=== PATIENT | female | born 1935 | race Caucasian/White ===

== ENCOUNTER 2022-03-23 15:30 | Inpatient (IN) | payer MEDICARE, OTHER ==
[~2022-03-23] VITALS: Ht 152.4 cm; Wt 79.4 kg
[2022-03-23] MEDS ORDERED: ACETAMINOPHEN 325 MG TABLET ONE (16:00)
[2022-03-23] MEDS ORDERED: ACETAMINOPHEN 325 MG TABLET PO ONE (16:00)
[2022-03-23 16:50] LABS: HEMATOCRIT 36.7 % (31.2-41.9); MEAN CORPUSCULAR HEMOGLOBIN 29.9 uug (24.7-32.8); MEAN CORPUSCULAR VOLUME 88.7 fL (75.5-95.3); PLATELET COUNT (AUTO) 215 K/uL (179-408)
[2022-03-23 17:05] LABS: BILIRUBIN,TOTAL 0.2 mg/dL (0.2-1.0); CREATININE 0.7 mg/dL (0.6-1.3); TOTAL PROTEIN, SERUM 6.7 g/dL (6.4-8.2)
--- NOTE | 2022-03-23 17:30 | NUR ---
Pt to be admitted to [place], [facility] paged and called for bed assignment. Admitting: Dustin Rome DNP Dx: Rt femur fx
--- NOTE | 2022-03-23 18:09 | NUR ---
EPIC paged again, pt assigned room 306 for transfer after change of shift. Pt resting with eyes closed with no s/s of distress noted at this time.
--- NOTE | 2022-03-23 21:03 | NUR ---
report given to Morgan OH
--- NOTE | 2022-03-23 21:25 | NUR ---
Admitted patient in Med surg floor, patient alert but forgetful, no complain of pain, except during movement, under the care of Dustin Rome. Patient has swollen right knee, bilateral leg and feet edema, with leeann area excoriation, skin tear on left arm/right arm, left ear, kept comfortable. Dr Crouch call the unit and instructed staff to obtain surgical consent IM nailing, and npo. cont to monitor.
--- NOTE | 2022-03-23 21:35 | NUR ---
Pt. admitted to Med Surg room 306, under care of Dustin Rome Belongs List completed
[2022-03-23 21:59] VITALS: BP 123/63
[2022-03-23] MEDS ORDERED: ONDANSETRON 4 MG/2 ML VIAL IV PRN (22:15)
[2022-03-23] MEDS ORDERED: MORPHINE SULFATE 2 MG/1 ML DISP.SYRIN IV PRN (22:15)
[2022-03-23] MEDS ORDERED: REMEDY ESSENTIAL ZINC PASTE 113 GM TP PRN (22:15)
--- NOTE | 2022-03-23 22:17 | NUR ---
Place a call to responsible libertarian Lesa Salinas to obtain surgical conset, but her mail box is full, left a phone number of [place].
[2022-03-23] MEDS: IV LACTATED RINGERS SOLUTION 1,000 ML IV PRN (22:45)
[2022-03-24 04:09] VITALS: BP 109/45
[2022-03-24 06:31] LABS: HEMATOCRIT 27.5 % (31.2-41.9); MEAN CORPUSCULAR HEMOGLOBIN 30.7 uug (24.7-32.8); MEAN CORPUSCULAR VOLUME 88.6 fL (75.5-95.3); PLATELET COUNT (AUTO) 155 K/uL (179-408)
[2022-03-24 07:07] LABS: CREATININE 0.7 mg/dL (0.6-1.3); MAGNESIUM 1.9 mg/dL (1.8-2.4); PHOSPHOROUS 3.8 mg/dL (2.5-4.9)
--- NOTE | 2022-03-24 07:40 | NUR ---
Consent obtained with Moris OH as witness. Patient unable to sign due to history of dementia.
[2022-03-24 11:20] VITALS: BP 101/35
--- NOTE | 2022-03-24 12:10 | NUR ---
ECHO results with an EF of 70-75. Moderate aortic stenosis. Dr. Qureshi notified. Patient may proceed with surgery.
--- NOTE | 2022-03-24 12:24 | NUR ---
WOUND CARE CONSULT: PT REFUSED TO BE TURNED FOR SKIN ASSESSMENT. PT NOTED TO HAVE STERI STRIPS ON LEFT ARM SKIN TEAR AND LEFT EAR DRY LESION, PRESENT ON ADMISSION. RECOMMENDATIONS MADE FOR SKIN PROTECTION. DISCUSSED WITH NURSING STAFF. MD IN AGREEMENT WITH PLAN OF CARE.
--- NOTE | 2022-03-24 12:37 | NUR ---
Dr. Crouch notified of patient's cardaic clearance. Dr. Crouch to come onto floor to see patient.
--- NOTE | 2022-03-24 14:20 | NUR ---
Thompson catheter placed in patient. Will endorse information to PM nurse.
[2022-03-24 15:55] VITALS: BP 108/52
--- NOTE | 2022-03-24 18:37 | NUR ---
Patient tolerated care well throughout shift despite being placed NPO majority of the shift. Patient scheduled to have ORIF of the Right Distal Femur Fracture tomorrow at 1130. Consent retrieved through patient's first of contact. Moris OH as notice during change of shift report. Patient now on regular diet, tolerating feeding well. IV site patent and intact. Patient reminded to keep right arm straight for fluids to run with no occlusion. Thompson catheter inserted today. Thompson patent and intact, draining well with no signs of obstruction. Bed left in lowest position with call light within reach. Comfort measures provided. Will endorse information to PM nurse.
[2022-03-24 20:00] VITALS: BP 124/54
[2022-03-24 22:04] LABS: *BILIRUBIN,URIN NEGATIVE (NEGATIVE); *BLOOD, URINE 1+ (NEGATIVE); *CLARITY,URINE CLEAR (CLEAR); *COLOR,URINE YELLOW (YELLOW); *KETONES,URINE 1+ (NEGATIVE); LEUKOCYTE ESTERASE ,URINE TRACE (NEGATIVE); NITRITE, URINE POSITIVE (NEGATIVE); UGLUCOSE NEGATIVE (NEGATIVE)
[2022-03-24] MEDS: IV LACTATED RINGERS SOLUTION 1,000 ML IV PRN (22:35)
[2022-03-24 23:03] LABS: BACTERIA,URINE 10 /HPF (NONE SEEN); SQUAMOUS EPITHELIAL CELL,UR MANY /HPF (NONE SEEN); YEAST,URINE FEW /HPF (NONE SEEN)
[2022-03-25] VITALS (18 sets, daily range): BP systolic 100–148; BP diastolic 46–65
--- NOTE | 2022-03-25 03:32 | NUR ---
Patient asleep but arousable, no complain of pain, except when turning and repositioning, kept clean and dry, remains NPO. no sob no chest pain, cont to monitor.
[2022-03-25] MEDS ORDERED: VANCOMYCIN 1000 MG VIAL ONE (07:10)
--- NOTE | 2022-03-25 11:33 | NUR ---
Patient was picked for her surgery at 11 am, and her vitals were stable: BP 148/61, O2Sat 95%, pulse 96, T 97 f. Patient was calm, no complains of pain.
[2022-03-25] MEDS ORDERED: HYDROMORPHONE 2 MG/1 ML DISP.SYRIN ONE (11:55)
[2022-03-25 14:24] LABS: HEMATOCRIT 23.4 % (31.2-41.9)
[2022-03-25] MEDS ORDERED: ALBUTEROL SULFATE 2.5 MG/3 ML NEBU ONE (15:27)
[2022-03-25] MEDS ORDERED: HYDROMORPHONE 1 MG/1 ML DISP.SYRIN ONE (15:51)
[2022-03-25] MEDS ORDERED: ALBUTEROL SULFATE 2.5 MG/3 ML NEBU NEB PRN (16:00)
[2022-03-25] MEDS ORDERED: NOREPINEPHRINE BITARTRATE 8 MG in IV NORMAL SALINE 242 ML IV PRN (16:30)
[2022-03-25] MEDS ORDERED: SEVOFLURANE 250 ML BOTTLE IH ONE (16:35)
[2022-03-25] MEDS ORDERED: CEFAZOLIN 1 G VIAL IM ONE (16:35)
[2022-03-25] MEDS ORDERED: KETOROLAC TROMETHAMINE 30 MG INJ IM ONE (16:35)
[2022-03-25] MEDS ORDERED: PROPOFOL 200 MG/20 ML BOTTLE IV ONE (16:35)
[2022-03-25] MEDS ORDERED: LIDOCAINE-MPF 2% 5 ML VIAL IJ ONE (16:35)
[2022-03-25] MEDS ORDERED: DEXAMETHASONE SOD PHOSPHATE 4 MG INJ IV ONE (16:35)
[2022-03-25] MEDS ORDERED: NOREPINEPHRINE BITARTRATE 32 MG in IV NORMAL SALINE 218 ML IV PRN (16:45)
[2022-03-25] MEDS: BUMETANIDE INJ 4 MG in IV DEXTROSE 5% 24 ML IV ONE (17:00)
[2022-03-25 17:28] LABS: ABG BASE EXCESS -3.6 mmol/L; ABG HCO3 20.7 mmol/L; ABG PCO2 34.1 mmHg (35.0-45.0); ABG PH 7.401 (7.350-7.450); ABG PO2 329.7 mmHg (75.0-100.0); ABG SITE RIGHT RADIAL; ABG TOTAL HEMOGLOBIN 8.3 G/dL (12.0-16.0); COHb 0.2 % (0.5-1.5); MetHb 0.8 % (0.0-1.5); O2Hb 98.2 % (94.0-97.0); VENT MODE BIPAP
--- NOTE | 2022-03-25 20:30 | NUR ---
REPORT from fiscal specialist .patient post op s/p ORIF of the right femur ,right knee with Aquaflex ,cast padding ,bias dressing .right leg elevated with pillow ,dorsalis pulses audible via Doppler . no respiratory distress notes ,on NRM at 15 liters ,no sob ,no respiratory distress noted . patient awake open eyes spontaneously but doesn't follow commands ,able to moved bilateral upper extremities. bilateral lower extremities moved but weak .right leg-knee with post op dressing . Thompson to bsd with yellowish urine.
--- NOTE | 2022-03-25 21:00 | NUR ---
called blood bank and spoked to Elijah informed Elijah patient needs 2 unit of prbc ,and the order is already in the computer , informed scoot to call RN once blood is available so i can pick it up .
[2022-03-25] MEDS: IV D5W-0.45% NS +20 KCL 1,000 ML IV PRN (21:01)
[2022-03-25] MEDS: CEFAZOLIN 1 G in IV DEXTROSE 5% 50 ML IV SCH (21:03)
--- NOTE | 2022-03-25 21:31 | NUR ---
PATIENT WAS ON BI/PAP IN POST OP, RECOVERY, GETS COMBATIVE, PULLING OFF MACHINE, PT PLACED ON 100% NRB MASK, FOR TRANSPORT TO CCU # 5 , THEN TITRATE @ 21:30 TO 6L/M VIA SIMPLE MASK SAT 99%, STABLE .Kianna CHESTER RCP Addendum: 03/25/22 at 2133 by PAM ROBERTS Amended: Links added. Addendum: 03/26/22 at 0339 by PAM ROBERTS PATIENT PLACED ON O2 @ 3L/M NC APPROX, 12AM, STILL SAT 100%, DOING WELL. Kianna CHESTER RCP
--- NOTE | 2022-03-25 21:45 | NUR ---
belonging inventory done ,missing eye glasses and lower dentures . called patient previous room ,not found .
[2022-03-26] VITALS (61 sets, daily range): BP systolic 89–127; BP diastolic 42–72
--- NOTE | 2022-03-26 01:12 | NUR ---
1 unit of prbc started blood checked with another RN .SEE BLOOD TRANSFUSION RECORD .
--- NOTE | 2022-03-26 04:21 | NUR ---
patient tolerated 1 unit of prbc . called lab to prepare the 2nd unit .
[2022-03-26] MEDS: CEFAZOLIN 1 G in IV DEXTROSE 5% 50 ML IV SCH (04:24)
--- NOTE | 2022-03-26 04:30 | NUR ---
bath patient changed soiled linens and gown ,offloaded back with pillows and right /left lower and upper extremities elevated with pillows . hob up .
--- NOTE | 2022-03-26 04:55 | NUR ---
2 nd unit of prbc started checked temp 98.7 axillary .
--- NOTE | 2022-03-26 06:22 | NUR ---
z guard applied to sacral area and placed Mepilex .
--- NOTE | 2022-03-26 09:00 | NUR ---
spoon fed for breakfast ,ate 1/2 of the oatmeal and drink the milk and ice water ,ate 25% only of the breakfast .
--- NOTE | 2022-03-26 09:23 | NUR ---
found patient glasses inside in her brown purse.(reading glasses),as per patient she only have the upper denture and no lower denture .
[2022-03-26 09:55] LABS: HEMATOCRIT 26.2 % (31.2-41.9); MEAN CORPUSCULAR HEMOGLOBIN 30.1 uug (24.7-32.8); PLATELET COUNT (AUTO) 121 K/uL (179-408)
[2022-03-26 10:00] LABS: CREATININE 0.9 mg/dL (0.6-1.3); MAGNESIUM 1.8 mg/dL (1.8-2.4); PHOSPHOROUS 2.6 mg/dL (2.5-4.9); POTASSIUM 3.8 mmol/L (3.5-5.1)
[2022-03-26] MEDS: IV D5W-0.45% NS +20 KCL 1,000 ML IV PRN (10:28)
--- NOTE | 2022-03-26 10:51 | NUR ---
physical therapist at b/s offered pain medication to patient before therapy but patient verbalized no pain .
--- NOTE | 2022-03-26 11:07 | NUR ---
called [facility] tel [phone],spoked with SIERRA OH TO FAX US PATIENT MEDICATION LIST .
[2022-03-26] MEDS: CEFTRIAXONE 1 G in IV DEXTROSE 5% 50 ML IV SCH (12:03)
--- NOTE | 2022-03-26 13:00 | NUR ---
pm care done ,bath patient changed soiled linens and gown . z guard applied to sacral area and bilateral groin ,placed .Mepilex to sacral area , right and left lower extremities elevated with pillows . right leg post op site dressing clean dry and intact and immobilizer in placed . Thompson to bsd with adequate urinary output .
--- NOTE | 2022-03-26 14:00 | NUR ---
ROBBIE IV patient tolerating regular diet .changed diet to regular puree .
--- NOTE | 2022-03-26 17:50 | NUR ---
patient spoon fed by IAN heck ,patient ate 1 spoonful of the mashed potato ,she eats very little but loves to drinks ice water . will continue to offer her food.
--- NOTE | 2022-03-26 18:54 | NUR ---
moved patient to medical surgical FLOOR room 301 A.report given to ALTHEA BENDER SAW PATIENT B/S REPORT GIVEN .
--- NOTE | 2022-03-26 18:58 | NUR ---
Patient received from CCU, alert oriented x3, no sob, resp even nonlabored, skin warm and dry to touch, on 2 liter via nasal canula, saturating at 96%, dressing intact to right femur, no active bleeding noted, pedal pulses are present, capillary refill less than 3 seconds to right foot, right foot noted with +2 pitting edema. patient is laying in bed comfortably, denied any pain at this time, central line is intact to right neck, no active bleeding noted, continue with care as ordered.
--- NOTE | 2022-03-26 19:08 | NUR ---
discontinued acute medical restrain, will continue to monitor
[2022-03-26] MEDS: ACETAMINOPHEN 325 MG TABLET PO PRN (20:44)
[2022-03-27 04:37] VITALS: BP 112/46
[2022-03-27 06:41] LABS: HEMATOCRIT 23.4 % (31.2-41.9); MEAN CORPUSCULAR HEMOGLOBIN 30.9 uug (24.7-32.8); MEAN CORPUSCULAR VOLUME 88.1 fL (75.5-95.3); PLATELET COUNT (AUTO) 104 K/uL (179-408)
[2022-03-27 06:48] LABS: CREATININE 0.7 mg/dL (0.6-1.3); MAGNESIUM 2.2 mg/dL (1.8-2.4); PHOSPHOROUS 2.7 mg/dL (2.5-4.9); POTASSIUM 3.9 mmol/L (3.5-5.1)
[2022-03-27 11:09] VITALS: BP 115/41
[2022-03-27] MEDS: CEFTRIAXONE 1 G in IV DEXTROSE 5% 50 ML IV SCH (12:24)
[2022-03-27 15:12] VITALS: BP 104/86
[2022-03-27] MEDS: SULFAMETH/TRIMETH 800/160 MG TABLET PO SCH (17:26)
--- NOTE | 2022-03-27 18:32 | NUR ---
patient is alert, oriented x3, verbally responsive, no sob, resp even nonlabored skin warm and dry to touch, patient has multiple discolorations to upper extremities, skin is intact, handled very gently, fragile skin, turned repositioned every 2 hours, both heels off load, noted with intact purplish discoloration to left heel, Mepilex applied, off load, wound care consult in place, continue to monitor. will endorse to next shift accordingly.
--- NOTE | 2022-03-27 19:41 | NUR ---
dressing changed and intact to right leg surgery site as ordered by surgeon, incision site is clean and dry, taisha intact, no active bleeding noted to incision site, no malodorous noted, no signs or symptoms of infection noted at site of surgery. Addendum: 03/27/22 at 1944 by THU EDGAR RN, RN IJ is intact to right neck, no active bleeding noted at site.
[2022-03-27 20:00] VITALS: BP 118/70
[2022-03-28 04:00] VITALS: BP 115/45
[2022-03-28] MEDS: SULFAMETH/TRIMETH 800/160 MG TABLET PO SCH ×2 (05:11→17:11)
--- NOTE | 2022-03-28 06:25 | NUR ---
Patient slept well. alertx3 and able to make needs known.kept bed elevated. Denies pain.Iv patent and intact on right Fa .IJ on right neck with 3 lumen.No active bleeding. Patient keeps removing oxygen .O2 sat at 93-94% in room air. No resp. distress. Thompson catheter draining well.Dressing intact clean and dry on right leg.Repositioned patient .Call light with in reach. Will endorse to oncoming shift.
[2022-03-28 06:31] LABS: HEMATOCRIT 23.2 % (31.2-41.9); MEAN CORPUSCULAR HEMOGLOBIN 30.7 uug (24.7-32.8); MEAN CORPUSCULAR VOLUME 87.9 fL (75.5-95.3); PLATELET COUNT (AUTO) 128 K/uL (179-408)
[2022-03-28 06:51] LABS: CREATININE 0.7 mg/dL (0.6-1.3); MAGNESIUM 2.4 mg/dL (1.8-2.4); PHOSPHOROUS 2.8 mg/dL (2.5-4.9); POTASSIUM 3.9 mmol/L (3.5-5.1)
[2022-03-28 11:17] VITALS: BP 135/48
[2022-03-28] MEDS ORDERED: SULFAMETH/TRIMETH 800/160 MG TABLET PO SCH (12:00)
[2022-03-28 14:58] VITALS: BP 125/45
[2022-03-28] MEDS: ACETAMINOPHEN 325 MG TABLET PO PRN (20:21)
[2022-03-28 20:46] VITALS: BP 113/51
[2022-03-29 05:09] VITALS: BP 111/48
[2022-03-29] MEDS: SULFAMETH/TRIMETH 800/160 MG TABLET PO SCH ×2 (05:16→17:13)
[2022-03-29 12:00] VITALS: BP 115/51
[2022-03-29 16:00] VITALS: BP 107/47
[2022-03-29 21:17] VITALS: BP 109/46
[2022-03-30 05:03] VITALS: BP 95/52
[2022-03-30] MEDS: SULFAMETH/TRIMETH 800/160 MG TABLET PO SCH ×2 (05:58→17:04)
[2022-03-30 08:00] VITALS: BP 116/60
[2022-03-30] MEDS ORDERED: FLUCONAZOLE 200 MG/NS 100ML IV 100 MG in PREMIXED 1 EACH IV SCH (10:00)
[2022-03-30] MEDS ORDERED: FLUCONAZOLE 100 MG TABLET PO ONE (11:45)
[2022-03-30 12:00] VITALS: BP 123/51
--- NOTE | 2022-03-30 13:12 | NUR ---
WOUND CARE CONSULT: PT SEEN FOR LEFT HEEL AND SACRAL INTACT DEEP TISSUE INJURIES. PT PREVIOUSLY REFUSED TO BE TURNED FOR SKIN ASSESSMENT. PT NOTED TO HAVE MULTIPLE CO-MORBIDITIES INCLUDING ENCEPHALOPATHY, DEMENTIA AND THROMBOCYTOPENIA. EDEMA WITH DISCOLORATION NOTED TO PUBIC/PERINEAL AREAS. DUE TO CO-MORBIDITIES, FURTHER SKIN BREAKDOWN MAY BE UNAVOIDABLE. DISCUSSED SKIN PROTECTION WITH NURSING STAFF. PT NOTED TO HAVE SURGICAL DRESSING WITH IMMOBILIZER TO RT LOWER EXTREMITY. SKIN TEAR TO UPPER EXTREMITIES WERE NOTED TO BE PRESENT ON ADMISSION. MD IN AGREEMENT WITH PLAN OF CARE. Addendum: 03/30/22 at 1316 by DELFIN MONIQUE RN Amended: Links added.
[2022-03-30 16:00] VITALS: BP 111/45
--- NOTE | 2022-03-30 18:21 | NUR ---
Incision site dry and clean. IJ cath, dry no bleeding noted on site. Per MD, IJ cath will be removed tomorrow prior to dc. Patient was seen by wound care nurse. Remained stable during the shift. Denies discomfort/pain. all needs attended. Safety measures maintained. no concerns identified. will endorse to the next shift for continuity of care.
[2022-03-30 20:26] VITALS: BP 113/46
--- NOTE | 2022-03-31 02:02 | NUR ---
Awake alert and oriented x2-3 with periods of confusion. Patient had a S/P Right femoral ORIF (03/25) Right hip dressing intact with taisha in placed. VSS. Right triple IJ intact. Repositioned for comfort. Thompson catheter intact draining yellow urine. I & O monitor. Fall precautions maintained. Possible SNF placement in am.
[2022-03-31 04:06] VITALS: BP 141/66
[2022-03-31] MEDS: SULFAMETH/TRIMETH 800/160 MG TABLET PO SCH (05:40)
[2022-03-31 06:56] LABS: HEMATOCRIT 22.3 % (31.2-41.9); MEAN CORPUSCULAR HEMOGLOBIN 30.7 uug (24.7-32.8); MEAN CORPUSCULAR VOLUME 87.7 fL (75.5-95.3); PLATELET COUNT (AUTO) 198 K/uL (179-408)
[2022-03-31 07:14] LABS: BILIRUBIN,TOTAL 0.7 mg/dL (0.2-1.0); CREATININE 0.6 mg/dL (0.6-1.3); MAGNESIUM 2.2 mg/dL (1.8-2.4); PHOSPHOROUS 3.7 mg/dL (2.5-4.9); POTASSIUM 4.2 mmol/L (3.5-5.1); TOTAL PROTEIN, SERUM 5.4 g/dL (6.4-8.2)
[2022-03-31] MEDS ORDERED: EPOETIN ALFA-EPBX 10,000 UNIT/ML VIAL SQ ONE (11:00)
[2022-03-31 11:45] VITALS: BP 132/62
[2022-03-31] MEDS ORDERED: PROTEIN SUPPLEMENT (PROSTAT) 30 ML LIQUID PO SCH (12:00)
--- NOTE | 2022-03-31 12:00 | NUR ---
RIGHT TRIPLE LUMEN IJ WAS REMOVED BY DR. MOSHER
[2022-03-31] MEDS ORDERED: DONE5TAB34 PO (12:59)
[2022-03-31] MEDS ORDERED: MEMA5TAB42 PO (12:59)
[2022-03-31] MEDS ORDERED: FURO-152 PO (13:11)
[2022-03-31] MEDS ORDERED: EPOE1VIA12 IJ (13:11)
[2022-03-31] MEDS ORDERED: PROT30LI PO (13:11)
[2022-03-31] MEDS ORDERED: ALBU2.5V13 NEB (13:11)
[2022-03-31] MEDS ORDERED: ACET325T53 PO (13:11)
[2022-03-31] MEDS ORDERED: ACID1TAB4 PO (13:11)
[2022-03-31] MEDS ORDERED: MENT113O TP (13:11)
[2022-03-31] MEDS ORDERED: Sulfameth/Trimeth 800/160 Mg PO (13:11)
[2022-03-31] MEDS ORDERED: FERR325T28 PO (13:17)
[2022-03-31] MEDS ORDERED: POLY17PO4 PO (13:17)
[2022-03-31] MEDS ORDERED: DOCU-141 PO (13:17)
[2022-03-31] MEDS ORDERED: RIVA10TA PO (13:32)
--- NOTE | 2022-03-31 14:30 | NUR ---
DISCHARGED TO [facility] VIA AMBULANCE STABLE. REPORT GIVEN JESSY OH AT [facility]
== END 2022-03-31 14:25 | DRG 480 ==
LOC: ER 15:35 → MEDSURG3 21:10 → CCU 03-25 20:01 → MEDSURG3 03-26 18:42
PROVIDERS: ADMIT Nurse Practitioner Acute Care; ATTEND Internal Medicine
PROC: 0QSB06Z Reposition Right Lower Femur with Intramedullary Internal Fixation Device, Open Approach (ICD-10-PCS; principal; 2022-03-25)
PROC: 02HV33Z Insertion of Infusion Device into Superior Vena Cava, Percutaneous Approach (ICD-10-PCS; 2022-03-25)
PROC: 5A09357 Assistance with Respiratory Ventilation, Less than 24 Consecutive Hours, Continuous Positive Airway Pressure (ICD-10-PCS; 2022-03-25)
PROC: 30243N1 Transfusion of Nonautologous Red Blood Cells into Central Vein, Percutaneous Approach (ICD-10-PCS; 2022-03-26)
DX: S72.491A Other fracture of lower end of right femur, initial encounter for closed fracture (principal); G92.8 Other toxic encephalopathy; E43 Unspecified severe protein-calorie malnutrition; J96.01 Acute respiratory failure with hypoxia; D62 Acute posthemorrhagic anemia; N39.0 Urinary tract infection, site not specified; D68.59 Other primary thrombophilia; B37.49 Other urogenital candidiasis; R57.9 Shock, unspecified; W01.0XXA Fall on same level from slipping, tripping and stumbling without subsequent striking against object, initial encounter; Y92.099 Unspecified place in other non-institutional residence as the place of occurrence of the external cause; F03.90 Unspecified dementia, unspecified severity, without behavioral disturbance, psychotic disturbance, mood disturbance, and anxiety; M16.0 Bilateral primary osteoarthritis of hip; Z85.828 Personal history of other malignant neoplasm of skin; D69.6 Thrombocytopenia, unspecified; I35.0 Nonrheumatic aortic (valve) stenosis; E87.70 Fluid overload, unspecified; Z74.09 Other reduced mobility; R73.9 Hyperglycemia, unspecified; B96.20 Unspecified Escherichia coli [E. coli] as the cause of diseases classified elsewhere; E66.9 Obesity, unspecified; Z68.34 Body mass index [BMI] 34.0-34.9, adult
CPT/HCPCS: 36415; 36600; 70450; 71045; 72125; 72170; 73551; 73590; 83735; 84100; 85018; 85025; 85610; 86850; 86900; 86901; 86920; 87077; 87086; 93005; 93307; 94660; 94664; 97161; 99082-TC; A4649; A4663; A6209; C1713; G0378; J0690; J0696; J0885; J1100; J1170; J1450; J1885; J3370; J3490; J7040; J7120; P9016